=== PATIENT | male | born 1955 | race Asian ===

== ENCOUNTER 2016-10-27 11:35 | Outpatient (CLI) | payer OTHER ==
[~2016-10-27 11:35] MED LIST: ALBUTERO1 IN; ASA LOW DOSE81 MG PO; CARAFATE1 GM PO; CARV12.5 PO; CLOP75TA2 PO; FLONASE0.05 % NAS; FURO40TA93 PO; HYDR-2748 PO; LIPITOR80 MG PO; LISI5TAB10 PO; LORA10TA3 PO; METFTAB PO; NITR0.4S2 SL; PREVACID30 MG PO
== END 2016-10-27 19:05 | disposition home or self-care (01) ==
LOC: RAD 11:35
DX: M54.2 Cervicalgia (principal); M62.838 Other muscle spasm

== ENCOUNTER 2016-12-31 10:17 | Outpatient (CLI) | payer OTHER | END 2016-12-31 18:56 | disposition home or self-care (01) | LOC: EDBD 10:17 → LABW 10:17 | DX: M10.071 Idiopathic gout, right ankle and foot (principal) | CPT/HCPCS: 84550; 85651 ==

== ENCOUNTER 2017-02-25 09:28 | Outpatient (CLI) | payer OTHER ==
[2017-02-25 10:05] LABS: PLATELET COUNT 171 K/uL (142-355)
[2017-02-25 10:42] LABS: POTASSIUM 4.7 mmol/L (3.6-5.2)
== END 2017-02-25 11:00 | disposition home or self-care (01) ==
LOC: LABW 09:28 → EDBD 09:28 → LABW 11:00
PROVIDERS: Family Medicine
DX: E11.9 Type 2 diabetes mellitus without complications (principal); I12.9 Hypertensive chronic kidney disease with stage 1 through stage 4 chronic kidney disease, or unspecified chronic kidney disease; N18.3 Chronic kidney disease, stage 3 (moderate); I50.9 Heart failure, unspecified; J44.9 Chronic obstructive pulmonary disease, unspecified
CPT/HCPCS: 36415; 80053; 80061; 81000; 82306; 82550; 83036; 83735; 83880; 84153; 84439; 84443; 84484; 84550; 85027; 93005

== ENCOUNTER 2017-05-13 14:03 | Outpatient (CLI) | payer OTHER | END 2017-05-13 19:33 | disposition home or self-care (01) | LOC: RAD 14:03 | DX: R10.84 Generalized abdominal pain (principal); R10.817 Generalized abdominal tenderness | CPT/HCPCS: 36415; 82565; 84520; Q9963 ==

== ENCOUNTER 2018-01-02 08:00 | Day surgery (SDC) | payer OTHER | END 2018-01-02 11:10 | disposition home or self-care (01) | LOC: OR 08:00 | PROC: 08RJ3JZ Replacement of Right Lens with Synthetic Substitute, Percutaneous Approach (ICD-10-PCS; principal; 2018-01-02) | DX: H25.811 Combined forms of age-related cataract, right eye (principal) | CPT/HCPCS: 66984; V2632 ==

== ENCOUNTER 2018-03-06 07:37 | Day surgery (SDC) | payer OTHER | END 2018-03-06 10:07 | disposition home or self-care (01) | LOC: OR 07:37 | PROC: 08RK3JZ Replacement of Left Lens with Synthetic Substitute, Percutaneous Approach (ICD-10-PCS; principal; 2018-03-06) | DX: H25.812 Combined forms of age-related cataract, left eye (principal) | CPT/HCPCS: 66984; V2632 ==

== ENCOUNTER 2018-06-10 17:19 | Outpatient (CLI) | payer OTHER | END 2018-06-10 19:34 | disposition home or self-care (01) | LOC: EDBD 17:19 → RAD 17:19 | DX: M25.519 Pain in unspecified shoulder (principal); M54.2 Cervicalgia ==

== ENCOUNTER 2019-05-10 16:38 | Outpatient (CLI) | payer OTHER | END 2019-05-10 20:22 | disposition home or self-care (01) | LOC: RAD 16:38 | DX: G89.4 Chronic pain syndrome (principal); M25.571 Pain in right ankle and joints of right foot; M79.671 Pain in right foot ==

== ENCOUNTER 2019-07-17 09:43 | Outpatient (CLI) | payer OTHER ==
[2019-07-17 10:13] LABS: POTASSIUM 4.9 mmol/L (3.6-5.2)
[2019-07-17 10:24] LABS: PLATELET COUNT 141 K/uL (142-355)
== END 2019-07-17 20:37 | disposition home or self-care (01) ==
LOC: LABW 09:43
PROVIDERS: Internal Medicine
DX: N18.3 Chronic kidney disease, stage 3 (moderate) (principal)
CPT/HCPCS: 36415; 80053; 81000; 82330; 82570; 83735; 83970; 84100; 84155; 85027

== ENCOUNTER 2019-10-02 10:10 | Outpatient (CLI) | payer OTHER ==
[2019-10-02 10:36] LABS: PLATELET COUNT 184 K/uL (142-355)
[2019-10-02 10:48] LABS: POTASSIUM 4.9 mmol/L (3.6-5.2)
== END 2019-10-02 23:53 | disposition home or self-care (01) ==
LOC: LABW 10:10
PROVIDERS: Nurse Practitioner
DX: N18.3 Chronic kidney disease, stage 3 (moderate) (principal)
CPT/HCPCS: 36415; 80053; 82330; 83735; 84100; 85027

== ENCOUNTER 2019-10-22 12:05 | Outpatient (CLI) | payer OTHER ==
[2019-10-22 13:09] LABS: PLATELET COUNT 202 K/uL (142-355)
[2019-10-22 13:18] LABS: POTASSIUM 4.7 mmol/L (3.6-5.2)
== END 2019-10-22 21:14 | disposition home or self-care (01) ==
LOC: LABW 12:05
PROVIDERS: Family Medicine
DX: J18.9 Pneumonia, unspecified organism (principal); R53.1 Weakness; R42 Dizziness and giddiness; M54.2 Cervicalgia; M54.5 Low back pain; N18.3 Chronic kidney disease, stage 3 (moderate); E11.9 Type 2 diabetes mellitus without complications; I42.8 Other cardiomyopathies
CPT/HCPCS: 36415; 80053; 81000; 83735; 84100; 84443; 84550; 85027

== ENCOUNTER 2022-03-16 11:46 | Outpatient (CLI) | payer OTHER ==
[2022-03-16 12:17] LABS: PLATELET COUNT 141 K/uL (142-355)
[2022-03-16 12:33] LABS: POTASSIUM 4.9 mmol/L (3.6-5.2)
== END 2022-03-16 20:13 | disposition home or self-care (01) ==
LOC: LABW 11:46
PROVIDERS: ATTEND Internal Medicine
DX: E11.22 Type 2 diabetes mellitus with diabetic chronic kidney disease (principal); N18.32 Chronic kidney disease, stage 3b; N25.81 Secondary hyperparathyroidism of renal origin
CPT/HCPCS: 36415; 80053; 82043; 82306; 82330; 83036; 83735; 83970; 84100; 85027

== ENCOUNTER 2022-10-13 07:50 | Outpatient (CLI) | payer OTHER | END 2022-10-13 18:51 | disposition home or self-care (01) | LOC: US 07:50 | PROVIDERS: ATTEND Family Medicine | DX: E78.2 Mixed hyperlipidemia (principal); N18.30 Chronic kidney disease, stage 3 unspecified; E11.9 Type 2 diabetes mellitus without complications; I12.9 Hypertensive chronic kidney disease with stage 1 through stage 4 chronic kidney disease, or unspecified chronic kidney disease; Z13.6 Encounter for screening for cardiovascular disorders ==